=== PATIENT | female | born 1945 | race Caucasian/White ===

== ENCOUNTER 2018-03-24 17:25 | Emergency (ER) | payer SELFPAY ==
[2018-03-24 18:11] VITALS: BMI 33.2
[2018-03-24] MEDS ORDERED: Sodium Chloride 0.9% 1,000 ML IV SCH (18:30)
--- NOTE | 2018-03-24 18:57 | C.PDOC ---
History Of Present Illness 72 y/o female brought in by daughter for evaluation of right upper extremity numbness, onset today. Of note patient is here visiting her daughter from [place]. She has PMHx of HTN, reports compliance with meds. Last night patient began feeling unwell, her only complaint was generalized weakness. Daughter took her pressure and found systolic pressure was ~200, which is unusual for her. Patient then rested and felt fine this morning. After lunch today, she began to feel queasy again and developed right thumb numbness and tingling, described as pins and needles sensation. This spread throughout her right hand. She denies any focal weakness, tremors, or shaking. Daughter again took pressure, and found systolic to be ~190. Numbness has now spread, patient reports feeling numb around the right side of her mouth. Daughter denies any facial droop, drooling, or slurred speech. On arrival to the ED patient is speaking normally. One hour ago, she also developed numbness to the right foot. She denies headache, extremity weakness, palpitations, chest pain, SOB, dizziness, or visual changes. Time Seen by Provider: 03/24/18 18:13 Chief Complaint (Nursing): High Blood Pressure History Per: Patient History/Exam Limitations: no limitations Onset/Duration Of Symptoms: Hrs Current Symptoms Are (Timing): Still Present Additional History Per: Family Past Medical History Reviewed: Historical Data, Nursing Documentation, Vital Signs Vital Signs: Last Vital Signs Temp 98.1 F 03/24/18 18:02 Pulse 68 03/24/18 18:15 Resp 18 03/24/18 18:02 BP 214/79 H 03/24/18 18:15 Pulse Ox 94 L 03/24/18 18:02 - Medical History PMH: HTN Family History: States: Unknown Family Hx - Social History Hx Alcohol Use: No Hx Substance Use: No - Immunization History Hx Tetanus Toxoid Vaccination: No Hx Influenza Vaccination: No Hx Pneumococcal Vaccination: No Review Of Systems Constitutional: Positive for: Weakness (generalized). Negative for: Fever, Chills Eyes: Negative for: Vision Change Cardiovascular: Negative for: Chest Pain, Palpitations Respiratory: Negative for: Shortness of Breath Gastrointestinal: Negative for: Nausea, Vomiting Neurological: Positive for: Numbness ("pins and needles" to right thumb, hand, near mouth, and right foot). Negative for: Weakness (focal), Change in Speech, Headache, Dizziness Physical Exam - Physical Exam Appears: Non-toxic, No Acute Distress Skin: Warm, Dry, No Diaphoretic, No Pale Head: Atraumatic, Normacephalic Eye(s): bilateral: Normal Inspection (no nystagmus), PERRL, EOMI Nose: Normal Oral Mucosa: Moist Neck: Normal ROM Chest: Symmetrical Cardiovascular: Rhythm Regular, No Murmur Respiratory: Normal Breath Sounds, No Rales, No Rhonchi, No Wheezing Gastrointestinal/Abdominal: Soft, No Tenderness, No Distention Extremity: Bilateral: Atraumatic, Normal Color And Temperature, Normal ROM (strength is 5/5 throughout) Pulses: Left Dorsalis Pedis: Normal, Right Dorsalis Pedis: Normal Neurological/Psych: Oriented x3, Normal Speech, Normal Cognition, Normal Cranial Nerves (2-12 intact), No Cerebellar Signs, Normal Motor, Normal Sensation (intact sensation to light touch), No Expressive Aphasia, No Receptive Aphasia, Other (No focal deficits) Gait: Steady Other Neurological Findings: No Facial Palsy Extremity: Right: No Drift, Left: No Drift, Upper: No Drift, Lower: No Drift ED Course And Treatment - Laboratory Results Result Diagrams: 03/24/18 19:10 03/24/18 19:10 Lab Interpretation: No Acute Changes ECG: Interpreted By Pr ECG Rhythm: Sinus Rhythm (with LVH), ST/T Changes (nonspecific) ECG Interpretation: No Acute Changes O2 Sat by Pulse Oximetry: 94 (RA) Pulse Ox Interpretation: Normal - Radiology CXR: Interpreted by Pr CXR Interpretation: Yes: No Acute Disease - CT Scan/US CT Head Other Rad Studies (CT/US): Read By Radiologist, Radiology Report Reviewed CT/US Interpretation: EXAM: CT Head without Intravenous Contrast. CLINICAL HISTORY: RIGHT SIDED PARESTHESIA WITH ELEVATED BP. TECHNIQUE: Axial computed tomography images of the head/brain without intravenous contrast. 0.00 mGy-cm. COMPARISON: None provided. FINDINGS: BRAIN. No acute intraparenchymal hemo rrhage. No mass lesion. No CT evidence for acute territorial infarct. No midline shift or extra-axial collections. VENTRICLES: No hydrocephalus. VASCULAR: Dense atherosclerotic vascular plaquing is noted within the carotid siphons bilaterally. ORBITS: The orbits are unremarkable. SINUSES AND MASTOIDS: The mastoid air cells are clear. There is mucoperiosteal thickening within the inferior left maxillary sinus thought consistent with sinusitis. The remaining paranasal sinuses appeared satisfactorily developed and aerated. BONES: No fracture. SOFT TISSUES: Unremarkable. IMPRESSION: 1. No acute intracranial abnormality. 2. Evidence of inferior left maxillary sinusitis. 3. Dense atherosclerotic vascular plaquing within the carotid siphons bilaterally. Reevaluation Time: 21:20 Reassessment Condition: Improved (BP 144/71) Medical Decision Making Medical Decision Making: Plan: --CT Head --Labs --EKG --Chest x-ray --IV fluids Disposition Counseled Patient/Family Regarding: Studies Performed, Diagnosis, Need For Followup - Disposition Referrals: [facility] [Outside] Disposition: HOME/ ROUTINE Disposition Time: 21:21 Condition: IMPROVED Instructions: High Blood Pressure in Adults, Paresthesias (DC) Forms: [facility] ([place]) - Clinical Impression Clinical Impression: Hypertension, Paresthesia - Scribe Statement The provider has reviewed the documentation as recorded by the Ronaldo Navarro Provider Attestation: All medical record entries made by the Ronaldo were at my direction and personally dictated by me. I have reviewed the chart and agree that the record accurately reflects my personal performance of the history, physical exam, medical decision making, and the department course for this patient. I have also personally directed, reviewed, and agree with the discharge instructions and disposition.
[2018-03-24 19:21] LABS: BASO # 0.1 K/uL (0.0-0.2); BASO % 0.8 % (0.0-2.0); EOS # 0.2 K/uL (0.0-0.7); EOS % 2.5 % (0.0-4.0); HEMOGLOBIN 14.9 g/dL (11.0-16.0); LYMPH # 2.4 K/uL (1.0-4.3); LYMPH % 36.9 % (20.0-40.0); MEAN CORPUSCULAR HEMOGLOBIN 28.2 pg (27.0-31.0); MEAN CORPUSCULAR HGB CONC 32.4 g/dL (33.0-37.0); MEAN PLATELET VOLUME 9.6 fL (7.2-11.7); MONO # 0.5 K/uL (0.0-0.8); MONO % 7.5 % (0.0-10.0); NEUT # 3.4 K/uL (1.8-7.0); NEUT % 52.3 % (50.0-75.0); NRBC % 0.2 % (0.0-2.0); RBC 5.27 Mil/uL (3.80-5.20); RED CELL DISTRIBUTION WIDTH 13.5 % (11.5-14.5); WHITE BLOOD COUNT 6.5 K/uL (4.8-10.8)
[2018-03-24 19:36] LABS: ALB/GLOB RATIO 1.4 (1.0-2.1); ALBUMIN 4.8 g/dL (3.5-5.0); ALT/SGPT 26 U/L (9-52); AST/SGOT 41 U/L (14-36); BLOOD UREA NITROGEN 19 mg/dL (7-17); CALCIUM 9.7 mg/dl (8.6-10.4); GFR NON-AFRICAN AMERICAN > 60; HDL CHOLESTEROL 58 mg/dL (30-70)
[2018-03-24 19:44] LABS: PROTHROMBIN TIME 11.2 SECONDS (9.7-12.2)
[2018-03-24 19:47] LABS: LDL CHOLESTEROL 166 mg/dL (0-129)
[2018-03-24 21:46] VITALS: PULSE 81
[2018-03-24 21:47] VITALS: BP 160/86; RESP 18; TEMP 97.6; O2SAT 96
--- NOTE | 2018-03-25 09:51 | RAD ---
Date of service: 03/24/2018 HISTORY: Code Stroke COMPARISON: No prior. FINDINGS: LUNGS: No active pulmonary disease. PLEURA: No significant pleural effusion identified, no pneumothorax apparent. CARDIOVASCULAR: No aortic atherosclerotic calcification present. Minimal cardiomegaly suspect. No significant appearing pulmonary venous congestion. OSSEOUS STRUCTURES: Thoracic spondylosis. Bilateral shoulder arthrosis VISUALIZED UPPER ABDOMEN: Normal. OTHER FINDINGS: None. IMPRESSION: No acute pulmonary pathology noted. Minimal cardiomegaly suspect Other findings as above.
--- NOTE | 2018-03-25 11:20 | CARD ---
APPROVED REPORT Date of service: 03/24/2018 EKG Measurement Heart [id number] <Conclusion> Normal sinus rhythm Minimal voltage criteria for LVH, may be normal variant Nonspecific T wave abnormality Abnormal ECG
--- NOTE | 2018-03-25 12:21 | CT ---
Date of service: 03/24/2018 PROCEDURE: CT HEAD WITHOUT CONTRAST. HISTORY: right sided paresthesia with elevated BP COMPARISON: None available. TECHNIQUE: Axial computed tomography images were obtained through the head/brain without intravenous contrast. Supplemental Coronal and Sagittal projections created and reviewed. Radiation dose: Total exam DLP = 1007.98 mGy-cm. This CT exam was performed using one or more of the following dose reduction techniques: Automated exposure control, adjustment of the mA and/or kV according to patient size, and/or use of iterative reconstruction technique. FINDINGS: HEMORRHAGE: No intracranial hemorrhage. BRAIN: No mass effect or edema. No atrophy or chronic microvascular ischemic changes. VENTRICLES: Unremarkable. No hydrocephalus. CALVARIUM: Unremarkable. PARANASAL SINUSES: Chronic left maxillary sinusitis. MASTOID AIR CELLS: Unremarkable as visualized. No inflammatory changes. OTHER FINDINGS: None. IMPRESSION: No acute intracranial abnormalities. No significant findings to account for the clinical presentation. Concordant results (preliminary interpretation) provided by [facility]. Procedure Completed: 19:54 Preliminary Report: Dictated and Authenticated: 21:07. Final Interpretation: 12:17.
== END 2018-03-24 22:06 | disposition home or self-care (01) ==
LOC: C.ER 17:25
DX: I10 Essential (primary) hypertension (principal); R20.2 Paresthesia of skin
CPT/HCPCS: 70450; 71045; 80053; 80061; 82948; 83036; 84484; 85025; 85610; 85730; 86850; 86900; 93005; 96360; 96361; 99285; J7030